=== PATIENT | female | born 2005 | race Caucasian/White ===

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

== ENCOUNTER 2025-02-11 08:36 | Inpatient (IN) | payer MEDICAID, SELFPAY ==
--- NOTE | ~2025-02-11 | CT_ITS ---
EXAMINATION: CT ABDOMEN PELVIS WITH IV CONTRAST HISTORY: diffuse abd pain COMPARISON: There are no prior studies for available comparison. TECHNIQUE: CT scan of the abdomen and pelvis was performed following administration of 85 mL Omnipaque 350 using standard departmental protocol. Coronal and sagittal reformatted images were generated and reviewed. Oral contrast material was not administered at the request of the referring physician. This CT exam was performed with one or more of the following dose reduction techniques: automated exposure control, adjustment of the mA and/or kV according to patient size, use of iterative reconstruction technique. DLP: 646 mGy-cm FINDINGS: LOWER CHEST: The visualized lung bases are clear. There is no pleural effusion. CARDIOVASCULATURE: The heart is normal in size. There is no pericardial effusion. LIVER: The liver is normal in size and contour. No liver mass is identified. The hepatic and portal veins are patent. GALLBLADDER / BILE DUCTS: The gallbladder is unremarkable. There is no intra or extrahepatic biliary ductal dilatation. SPLEEN: The spleen is normal in size. No focal splenic lesion is identified. PANCREAS: The pancreas is unremarkable in appearance. ADRENAL GLANDS: Within normal limits. KIDNEYS/RETROPERITONEUM: No renal calculi are identified. There is no hydronephrosis. No renal masses are identified. LYMPH NODES: No abdominal or pelvic lymphadenopathy. VASCULATURE: The abdominal aorta is normal in caliber. MESENTERY/PERITONEUM: There is trace free fluid in the cul-de-sac. No masses. There is no free intraperitoneal gas. STOMACH: The stomach is unremarkable. SMALL BOWEL: The small bowel is normal in caliber. COLON: The colon is unremarkable. APPENDIX: The appendix is dilated measuring up to 8mm in diameter. No periappendiceal inflammatory stranding is identified. URINARY BLADDER/PELVIC ORGANS: The urinary bladder is unremarkable. The uterus and ovaries are unremarkable. 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 CT/CT abdomen pelvis w IV con IMPRESSION: Prominent appendix without periappendiceal inflammatory stranding. Clinical correlation is recommended to evaluate for early appendicitis. Electronically signed by: Nathan Maradiaga MD 02/11/2025 11:11 AM EDT
[2025-02-11 09:01] VITALS: BP 114/70; PULSE 88; RESP 18; TEMP 36.1; O2SAT 99; BMI 29.5
--- NOTE | 2025-02-11 09:02 | ED.GENADULT ---
HPI - General Adult General Chief complaint: Abdominal Pain Stated complaint: abd pain Time Seen by Provider: 02/11/25 08:45 Source: patient, RN notes reviewed, old records reviewed and ammunition officer Mode of arrival: ambulatory Limitations: language barrier (Tunisian-speaking) History of Present Illness ED Provider: ZAHIDA Henry HPI narrative: 19-year-old female without significant medical history presents to the ED due to abdominal pain that began this morning. Patient reports the abdominal pain woke her up from sleep and is constant. She also explains she is having difficulty urinating. She states she experienced pain like this before when she had a miscarriage. Patient states she has the depo shot and her menstrual cycle is very irregular, she does not remember when her last menstruation was. Denies chest pain, SOB, nausea, vomiting MD complaint: abd pain Related Data Allergies Allergy/AdvReac Type Severity Reaction Status Date / Time No Known Allergies Allergy Verified 02/11/25 09:01 Review of Systems Review of Systems: CONST: Negative for fever, body aches and chills. HENT: Negative for neck pain/stiffness, headache, congestion, sore throat, swelling. EYES: Negative for discharge/pain or vision changes. RESP: Negative for cough/hemoptysis and shortness of breath. CV: Negative chest pain, difficulty breathing, palpitations. ABD: Negative nausea, vomiting. POS diffuse abd pain : Negative increase frequency, dysuria, blood in urine or stool. MUSC: Negative for muscle aches, edema. SKIN: Negative rash, lesions/sores. NEURO: Negative headache, dizziness, weakness. Yes all other systems are reviewed and are negative PMFSH Past Medical History Surgical History (Updated 02/11/25 @ 12:37 by Gloria Cespedes PA-C) History of Social History Social History Advance Directives: No Advance Directives Information Provided: Yes Physical Exam ED Vital Signs: Vital Signs - 24 hr 02/11/25 09:01 Temperature 97 F Pulse Rate 88 Respiratory Rate 18 Blood Pressure 114/70 Pulse Oximetry 99 Oxygen Delivery Method Room Air BMI result Body Mass Index 29.5 Medications Administered Discontinued Medications Generic Name Dose Route Start Last Admin Trade Name Freq PRN Reason Stop Dose Admin Lactated Ringer's 1,000 mls @ 999 mls/hr 09/18/25 09:12 02/11/25 09:30 Lr IV 02/11/25 10:12 999 mls/hr .Q1H1M ONE Administration Iohexol 100 ml 02/11/25 10:43 02/11/25 10:43 Iohexol 350 Mg/Ml 100 Ml Infus..Btl IV 02/11/25 10:44 85 ml ONCE ONE Administration Morphine Sulfate 4 mg 02/11/25 10:03 02/11/25 10:07 Morphine Sulfate 4 Mg/Ml Cartridge IVPUSH 02/11/25 10:04 4 mg ONCE ONE Administration Protocol Medical Decision Making Medical Decision Making [facility] Narrative: 19-year-old female without significant medical history with constant abdominal pain that started this morning and woke her from sleep, is not associated with nausea or vomiting. Patient reports difficulty with urination, is concerned for as she states the last time she experienced symptoms like this she had a miscarriage. Patient states she has the Depo shot, with irregular cycle does not know when her last menstrual period was. VS on initial observation-BP 114/70, pulse rate of 88, respiratory rate of 18, afebrile with oral temp of 97?, O2 saturation 99% on room air. On physical exam lungs clear to auscultation bilaterally, cardiac exam reveals normal rate and rhythm without murmurs/rubs/gallops, abdomen is soft, nonrigid, nondistended, when attempting to press on abdomen patient is guarding, and moves my hand very quickly and will not allow me to palpate. Patient points to the periumbilical region that is the cause of her pain. Plan: Labs, UA, CT abdomen and pelvis Course Labs without leukocytosis/leukopenia, H&H stable, no electrolyte abnormality. Beta hCG negative. CT abdomen and pelvis reveals index without periappendiceal inflammatory stranding. I have reached out to surgeon Dr. Knox who will admit the patient to his service. Patient is in agreement with the plan. Differential Diagnosis Differential Diagnoses: The differential diagnosis associated with the presentation includes Ectopic Viral illness Acute abdomen Admission/Observation Consideration of admission/observation: Escalation of care including admission/observation considered Lab Data [facility] Lab Attestation statement: I reviewed the patient's lab results. 02/11/25 09:07 02/11/25 09:07 Labs: Lab Results 02/11/25 02/11/25 Range/Units 09:07 11:32 WBC 8.4 (4.8-10.8) X10*3/uL RBC 4.72 (4.20-5.50) X10*6/uL Hgb 13.4 (12.0-16.0) g/dl Hct 39.4 (37.0-47.0) % MCV 83.5 (80.0-98.0) fL MCH 28.4 (27.0-33.0) pg MCHC 34.0 (31.0-35.0) g/dl RDW 13.1 (11.0-16.0) % Plt Count 284 (160-400) X10*3/uL MPV 9.8 (9.4-12.3) fL Immature Gran % (Auto) 0.4 (0.0-0.4) % Neut % (Auto) 58.1 (45-73) % Lymph % (Auto) 37.0 (20-40) % [place] % (Auto) 2.5 (2-11) % Eos % (Auto) 1.6 (0-4) % Baso % (Auto) 0.4 (0-2) % Lymph # (Auto) 3.1 (1.2-4.9) X10*3/uL [place] # (Auto) 0.2 (0.1-1.2) X10*3/uL Eos # (Auto) 0.1 (0.0-0.4) X10*3/uL Baso # (Auto) 0.0 (0.0-0.2) X10*3/uL Abs Immat Gran (auto) 0.03 (0.00-0.03) X10*3/uL Absolute Neuts (auto) 4.9 (2.0-8.3) x10*3/uL Absolute Nucleated RBC 0.000 (0.0-0.012) X10*3/uL Nucleated RBC % (auto) 0.0 (0.0-0.2) /100WBC Sodium 141 (135-145) mmol/L Potassium 3.6 (3.3-5.1) mmol/L Chloride 111 H (96-108) mmol/L Carbon Dioxide 24 (22-29) mmol/L Anion Gap 10 L (12-20) BUN 10 (9-16) mg/dL Creatinine 0.80 (0.5-1.4) mg/dL Estim Creat Clear Calc 113.3 Estimated GFR > 60 Random Glucose 124 H (60-115) mg/dL Calcium 8.8 (8.4-10.2) mg/dL Magnesium 1.7 (1.6-2.6) mg/dL Total Bilirubin 0.2 (0.0-1.0) mg/dL Direct Bilirubin < 0.2 (0.0-0.5) mg/dL AST 18 (5-31) U/L ALT 9 (0-31) U/L Alkaline Phosphatase 71 (39-117) U/L Total Protein 7.3 (6.5-8.0) g/dL Albumin 4.3 (3.5-5.0) g/dL Lipase 15 (8-78) U/L Beta HCG, Quant < 2 mIU/mL Urine Color Yellow Urine Appearance Clear Urine pH 6.0 (5.0-9.0) Ur Specific [place] 1.025 (1.005-1.025) Urine Protein Negative (Neg-Trace) mg/dL Urine Glucose (UA) Negative (Negative) mg/dL Urine Ketones Negative (Negative) mg/dL Urine Blood Negative (Negative) Urine Nitrite Negative (Negative) Ur Leukocyte Esterase Negative (Negative) Independent Interpretation I performed an independent interpretation of an: CT Scan Interpretation: I personally interpreted the CT abdomen and pelvis which reveals a thickened prominent appendix, I agree with the radiologist's interpretation. Radiology Impression Discussion of test interpretation with radiology: I have reviewed the radiologist's reading. Radiologist Impression: CT abdomen/pelvis FINDINGS: LOWER CHEST: The visualized lung bases are clear. There is no pleural effusion. CARDIOVASCULATURE: The heart is normal in size. There is no pericardial effusion. LIVER: The liver is normal in size and contour. No liver mass is identified. The hepatic and portal veins are patent. GALLBLADDER / BILE DUCTS: The gallbladder is unremarkable. There is no intra or extrahepatic biliary ductal dilatation. SPLEEN: The spleen is normal in size. No focal splenic lesion is identified. PANCREAS: The pancreas is unremarkable in appearance. ADRENAL GLANDS: Within normal limits. KIDNEYS/RETROPERITONEUM: No renal calculi are identified. There is no hydronephrosis. No renal masses are identified. LYMPH NODES: No abdominal or pelvic lymphadenopathy. VASCULATURE: The abdominal aorta is normal in caliber. MESENTERY/PERITONEUM: There is trace free fluid in the cul-de-sac. No masses. There is no free intraperitoneal gas. STOMACH: The stomach is unremarkable. SMALL BOWEL: The small bowel is normal in caliber. COLON: The colon is unremarkable. APPENDIX: The appendix is dilated measuring up to 8mm in diameter. No periappendiceal inflammatory stranding is identified. URINARY BLADDER/PELVIC ORGANS: The urinary bladder is unremarkable. The uterus and ovaries are unremarkable. 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 CT/CT abdomen pelvis w IV con IMPRESSION: Prominent appendix without periappendiceal inflammatory stranding. Clinical correlation is recommended to evaluate for early appendicitis. Electronically signed by: Nathan Maradiaga MD 02/11/2025 11:11 AM EDT Dictated By: Nathan Maradiaga MD Signed By: <Electronically signed by Nathan Maradiaga MD in OV> Independent Historian Clinical information obtained from an independent historian. History obtained from or confirmed by: Friend (Friend at bedside corroborating history) External Record Review External record reviewed: Inpatient record, Office record and Outpatient record Prescription Management I considered prescription management with: Antibiotic (I considered antibiotics however CT without evidence of ruptured appy, no indication for antibiotics at this time.) Chronic Conditions Patient?s care impacted by: Other (No known medical history) Discharge Plan Discharge Clinical Impression: Acute appendicitis Patient Disposition: Admitted As Inpatient
[2025-02-11 09:11] LABS: MANUAL DIFF FLAG NO
[2025-02-11 09:18] LABS: Hematocrit 39.4 % (37.0-47.0); Hemoglobin 13.4 g/dl (12.0-16.0); Imm Gran Abs Auto 0.03 X10*3/uL (0.00-0.03); Imm Gran Pct Auto 0.4 % (0.0-0.4); Lymphocytes Absolute Auto 3.1 X10*3/uL (1.2-4.9); Mean Corpuscular HGB Conc 34.0 g/dl (31.0-35.0); Mean Corpuscular Hemoglobin 28.4 pg (27.0-33.0); Mean Corpuscular Volume 83.5 fL (80.0-98.0); NRBC Abs Auto 0.000 X10*3/uL (0.0-0.012); NRBC Pct Auto 0.0 /100WBC (0.0-0.2); Platelet Count 284 X10*3/uL (160-400); Red Blood Count 4.72 X10*6/uL (4.20-5.50); White Blood Count 8.4 X10*3/uL (4.8-10.8)
--- NOTE | 2025-02-11 09:19 | PC.NURSE ---
patient reports abdominal pain that woke her up from sleep, since has been having difficulty w/ urination. IV established, labs obtained and sent.
[2025-02-11] MEDS: Lactated Ringers 1,000 ML 999 ML IV (09:30)
[2025-02-11 09:40] LABS: Alanine Aminotransferase 9 U/L (0-31); Albumin Level 4.3 g/dL (3.5-5.0); Alkaline Phosphatase 71 U/L (39-117); Anion Gap 10 (12-20); Aspartate Amino Transferase 18 U/L (5-31); Blood Urea Nitrogen 10 mg/dL (9-16); Calcium 8.8 mg/dL (8.4-10.2); Carbon Dioxide 24 mmol/L (22-29); Chloride 111 mmol/L (96-108); Creatinine Clr Calc Pharmacy 113.3; Estimated Glomerular Filt Rate > 60; Lipase 15 U/L (8-78); Magnesium 1.7 mg/dL (1.6-2.6); Potassium 3.6 mmol/L (3.3-5.1); Sodium 141 mmol/L (135-145); Total Protein 7.3 g/dL (6.5-8.0)
[2025-02-11] MEDS: iohexoL 350 MG/ML 100 ML INFUS..BTL IV (10:43)
[2025-02-11 11:44] LABS: Appearance Urine Clear; Glucose Urine UA Negative (Negative); PH 6.0 (5.0-9.0); Specific Gravity - Urine 1.025 (1.005-1.025)
--- NOTE | 2025-02-11 12:31 | P.HPGS_ITS ---
History of Present Illness History of Present Illness Date of Service: 02/11/25 <Gloria Cespedes PA-C - Last Filed: 02/11/25 12:45> 02/11/25 <Jere Knox MD - Last Filed: 02/11/25 15:10> Chief complaint: abd pain <Gloria Cespedes PA-C - Last Filed: 02/11/25 12:45> Narrative: Cherise Caldwell is a 19 year old female with no significant PMH who was in her usual state of health when she was awoken out of sleep this morning around 8am with abdominal pain. She reports the pain is surrounding/above her umbilicus on the right. This is where the pain started and persisted. It was associated with one episode of loose stools. She denies nausea, vomiting, fevers, constipation, dysuria. It was severe in nature and she therefore came to the ED for evaluation. Work up in the ED included CBC, BMP, LFTs which were essentially unremarkable. CT scan was performed which showed a dilated appendix without periappendiceal inflammatory stranding. She denies previous episodes of similar pain. She feels improved since presenting to the ED. She is hungry and wants to eat and is asking for food. Surgical history significant for c section. <Gloria Cespedes PA-C - Last Filed: 02/11/25 12:45> Review of Systems Review of Systems: Yes all other systems are reviewed and are negative <Gloria Cespedes PA-C - Last Filed: 02/11/25 12:45> [facility] Surgical History Surgical History: Surgical History (Updated 02/11/25 @ 12:37 by Gloria Cespedes PA-C) History of <Gloria Cespedes PA-C - Last Filed: 02/11/25 12:45> Social History Social History: Social History Advance Directives: No Advance Directives Information Provided: Yes <Gloria Cespedes PA-C - Last Filed: 02/11/25 12:45> Meds Allergies/Adverse reactions: Allergies Allergy/AdvReac Type Severity Reaction Status Date / Time No Known Allergies Allergy Verified 02/11/25 09:01 <Gloria ZAHIDA Cespedes Rosanna Last Filed: 02/11/25 12:45> Physical Exam Vital Signs: Vital Signs: Last Vital Signs Temp 97 F 02/11/25 09:01 Pulse 88 02/11/25 09:01 Resp 18 02/11/25 09:01 BP 114/70 02/11/25 09:01 Pulse Ox 99 02/11/25 09:01 O2 Del Method Room Air 02/11/25 09:01 BMI result Body Mass Index 29.5 <Gloria Cespedes PA-C Rosanna Last Filed: 02/11/25 12:45> Const: General: comfortable, no acute distress and alert; No ill appearing <Gloria Cespedes PA-C Rosanna Last Filed: 02/11/25 12:45> Orientation/consciousness: patient oriented x3 <Gloria Cespedes PA-C Rosanna Last Filed: 02/11/25 12:45> Resp: Effort & Inspection: normal respiratory effort <Gloria Cespedes PA-C Rosanna Last Filed: 02/11/25 12:45> Cardio: Rate: regular rate <Gloria CHAMP CespedesEddie Marte Last Filed: 02/11/25 12:45> GI: Other: mildly corpulent abdomen <Gloria Cespedes PA-C Rosanna Last Filed: 02/11/25 12:45> Inspection: No distended and Yes scar (well healed pfannensteil) <Gloria Cespedes PA-C Rosanna Last Filed: 02/11/25 12:45> Palpation (GI): Soft to palpation, Tenderness to palpation present (GI) (mild periumbilical tenderness, more on the right ) with no rebound tenderness and Rovsing's sign negative and no guarding <Gloria Cespedes PA-C Rosanna Last Filed: 02/11/25 12:45> Skin: General skin exam: no rashes or lesions noted <Gloria Cespedes PA-C Rosanna Last Filed: 02/11/25 12:45> Neuro: General: patient oriented x3 and moves all extremities <Gloria Cespedes PA-C Rosanna Last Filed: 02/11/25 12:45> Results Results Labs: Short CBC 02/11/25 Range/Units 09:07 WBC 8.4 (4.8-10.8) X10*3/uL Hgb 13.4 (12.0-16.0) g/dl Hct 39.4 (37.0-47.0) % Plt Count 284 (160-400) X10*3/uL BMP 02/11/25 09:07 Sodium 141 Potassium 3.6 Chloride 111 H Carbon Dioxide 24 BUN 10 Creatinine 0.80 Calcium 8.8 Liver Function 02/11/25 Range/Units 09:07 Total Bilirubin 0.2 (0.0-1.0) mg/dL Direct Bilirubin < 0.2 (0.0-0.5) mg/dL AST 18 (5-31) U/L ALT 9 (0-31) U/L Alkaline Phosphatase 71 (39-117) U/L Albumin 4.3 (3.5-5.0) g/dL Urine 02/11/25 Range/Units 11:32 Urine Color Yellow Urine Appearance Clear Urine pH 6.0 (5.0-9.0) Ur Specific [place] 1.025 (1.005-1.025) Urine Protein Negative (Neg-Trace) mg/dL Urine Glucose (UA) Negative (Negative) mg/dL <Gloria Cespedes PA-C - Last Filed: 02/11/25 12:45> Abdomen CT scan report/results: report reviewed and image reviewed <Gloria Cespedes PA-C - Last Filed: 02/11/25 12:45> Additional studies: labs reviewed <Gloria Cespedes PA-C - Last Filed: 02/11/25 12:45> Assessment and Plan (1) Abdominal pain: Status: Acute <Gloria Cespedes PA-C - Last Filed: 02/11/25 12:45> [age] year old female with periumbilical pain since 08:00 this morning No nausea or vomiting Abdomen is soft and benign Tender directly on the area around the umbilicus No leukocytosis CT scan reviewed - the appendix prominent but without inflammatory changes Can not rule out acute appendicitis so we will admit the patient for serial abdominal exam IV Zosyn Explained plan to patient and family at bedside Seen and examined independently <Jere Knox MD - Last Filed: 02/11/25 15:10> 19 year old female with no significant PMH presenting with acute onset periumbilical abdominal pain. Her CT scan shows a mildly enlarged appendix however there are no surrounding inflammatory changes and she has no leukocytosis. She is comfortable and nontoxic appearing, she does have tenderness periumbilically but no tenderness in the RLQ/suprapubic region. Will therefore admit for observation, start on empiric IV abx for possible early acute appendicitis. If she has no improvement in her pain tomorrow, we discussed possible proceeding with laparoscopic appendectomy possible open. Will cont IVF, NPO status, IV abx. Further plan dependent on clinical course. Patient and family at bedside agree with plan. Seen with japanese interpreter. <Gloria Cespedes PA-C - Last Filed: 02/11/25 12:45> Quality Stroke Does the patient have a stroke diagnosis?: No <Gloria Cespedes PA-C - Last Filed: 02/11/25 12:45> VTE Prior VTE?: No <Gloria Cespedes PA-C - Last Filed: 02/11/25 12:45> VTE Risk Level:: Medical - low <Gloria Cespedes PA-C - Last Filed: 02/11/25 12:45> VTE Device Contraindication: N/A - Device Ordered <Gloria Cespedes PA-C - Last Filed: 02/11/25 12:45> VTE Drug Contraindication: Treatment Not Indicated <Gloria Cespedes PA-C - Last Filed: 02/11/25 12:45> Procedures Date of Service Date of Service: 02/11/25 <Gloria Cespedes PA-C - Last Filed: 02/11/25 12:45> 02/11/25 <Jere Knox MD - Last Filed: 02/11/25 15:10>
[2025-02-11] MEDS: Lactated Ringers 1,000 ML 100 ML IVCONT (13:33)
--- NOTE | 2025-02-11 13:44 | HO.NURTONUR ---
Pt arrived c/o abd pain starting this morning. ED CT shows early appendicitis, pt started on IVF, IV abx, and consult to surgery. Currently denies n/v/d/dizziness/FEVERS. Ambulatory/independent, aaox4. Plan for possible lap appy tomorrow if symptoms don't improve. Pt is SSO.
[2025-02-11 15:04] VITALS: BP 115/53; PULSE 79; RESP 14; TEMP 37.6; O2SAT 99
--- NOTE | 2025-02-11 16:43 | PM.EVENT ---
Event Note Date of Service: 02/12/25 Event Note: Seen on afternoon rounds She says she has more comfortable She has less pain Hemodynamically stable Abdomen remained soft and very benign She does have some tenderness around the umbilicus although this seems to be less Continue management for now with close monitoring, IV antibiotics, IV fluids and serial exams We will re-evaluate in the morning she is comfortable with the plan Time Spent With Patient Time: Total time managing care of this patient today ____ minutes.
[2025-02-11] MEDS: 0.9 % Sodium Chloride Flush 3 ML SYRINGE IVFLUSH (17:00)
[2025-02-11] MEDS: oxyCODONE HCl Immed Release 5 MG TABLET PO (17:04)
--- NOTE | 2025-02-11 19:25 | PHA.MEDREC ---
Pharmacy Consult ? Medication Reconciliation Pharmacy has completed the medication reconciliation. Spoke to patient via offset press assistant and she confirmed she does not take any medication at home.
[2025-02-11 19:27] VITALS: BP 126/69; PULSE 88; RESP 18; TEMP 36.2; O2SAT 100
[2025-02-12] MEDS: Lactated Ringers 1,000 ML 100 ML IVCONT (02:35)
[2025-02-12 03:48] VITALS: BP 107/54; PULSE 73; RESP 16; TEMP 36.3; O2SAT 99
[2025-02-12 05:27] LABS: MANUAL DIFF FLAG NO
[2025-02-12 05:31] LABS: Hematocrit 34.3 % (37.0-47.0); Hemoglobin 11.9 g/dl (12.0-16.0); Imm Gran Abs Auto 0.01 X10*3/uL (0.00-0.03); Imm Gran Pct Auto 0.1 % (0.0-0.4); Lymphocytes Absolute Auto 2.7 X10*3/uL (1.2-4.9); Mean Corpuscular HGB Conc 34.7 g/dl (31.0-35.0); Mean Corpuscular Hemoglobin 28.8 pg (27.0-33.0); Mean Corpuscular Volume 83.1 fL (80.0-98.0); NRBC Abs Auto 0.000 X10*3/uL (0.0-0.012); NRBC Pct Auto 0.0 /100WBC (0.0-0.2); Platelet Count 251 X10*3/uL (160-400); Red Blood Count 4.13 X10*6/uL (4.20-5.50); White Blood Count 8.3 X10*3/uL (4.8-10.8)
[2025-02-12] MEDS: oxyCODONE HCl Immed Release 5 MG TABLET PO ×2 (07:05→13:01)
[2025-02-12 07:39] VITALS: BP 99/53; PULSE 69; RESP 16; TEMP 36.7; O2SAT 98
--- NOTE | 2025-02-12 08:42 | P.PNGS_ITS ---
Subjective Subjective Date of Service: 02/12/25 <Gloria Cespedes PA-C - Last Filed: 02/12/25 08:45> 02/12/25 <Jere Knox MD - Last Filed: 02/12/25 09:56> Interval history: Feels improved, pain remains periumbilical but significant better. Feels hungry and wants to eat. <Gloria Cespedes PA-C - Last Filed: 02/12/25 08:45> Physical Exam 2 Vital Signs: Vital Signs: Last Vital Signs Temp 98.0 F 02/12/25 07:39 Pulse 69 02/12/25 07:39 Resp 16 02/12/25 07:39 BP 99/53 L 02/12/25 07:39 Pulse Ox 98 02/12/25 07:39 O2 Del Method Room Air 02/12/25 07:39 BMI result Body Mass Index 29.5 <Gloria Cespedes PA-C - Last Filed: 02/12/25 08:45> Const: General: comfortable, no acute distress and alert <Gloria Cespedes PA-C - Last Filed: 02/12/25 08:45> Orientation/consciousness: patient oriented x3 <Gloria Cespedes PA-C - Last Filed: 02/12/25 08:45> Resp: Effort & Inspection: normal respiratory effort <Gloria Cespedes PA-C - Last Filed: 02/12/25 08:45> GI: Inspection: No distended <Gloria Cespedes PA-C - Last Filed: 02/12/25 08:45> Palpation (GI): Soft to palpation, Tenderness to palpation present (GI) (mild periumbilical on right ) and no guarding <Gloria Cespedes PA-C - Last Filed: 02/12/25 08:45> Skin: General skin exam: no rashes or lesions noted <ZAHIDA Hall Last Filed: 02/12/25 08:45> Neuro: General: patient oriented x3 and moves all extremities <ZAHIDA Hall Last Filed: 02/12/25 08:45> Objective Data Active Medications Acetaminophen (Acetaminophen 325 Mg Tablet) 650 mg PO Q6H PRN PRN Reason: Pain, Mild 1-3,fever,headache Calcium Carbonate (Calcium Carbonate 750 Mg Tab.Chew) 750 mg PO Q4H PRN PRN Reason: Heartburn Lactated Ringer's (Lr) 1,000 mls @ 100 mls/hr IVCONT .Q10H [facility] Last Admin: 02/12/25 07:52 Dose: Not Given Documented By: NIVIA Non-Admin Reason: IV Running Piperacillin Sod/Tazobactam (Sod 3.375 gm/ Sodium Chloride) 50 mls @ 100 mls/hr IV Q6H [facility] Last Infusion: 02/12/25 07:02 Dose: Infused Documented By: NIVIA Magnesium Hydroxide (Milk Of Magnesia 30 Ml Oral.Susp) 30 ml PO DAILY PRN PRN Reason: Constipation Melatonin (Melatonin 3 Mg Tablet) 6 mg PO BEDTIME PRN PRN Reason: Insomnia Morphine Sulfate (Morphine Sulfate 4 Mg/Ml Cartridge) 4 mg IVPUSH Q4H PRN; Protocol PRN Reason: Pain, Severe (Pain Scale 7-10) Ondansetron HCl (Ondansetron Hcl 4 Mg/2 Ml Vial) 4 mg IVPUSH Q8H PRN PRN Reason: Nausea and Vomiting Oxycodone HCl (Oxycodone Hcl Immed Release 5 Mg Tablet) 5 mg PO Q6H PRN PRN Reason: Pain, Moderate(Pain Scale 4-6) Last Admin: 02/12/25 07:05 Dose: 5 mg Documented By: NIVIA Sodium Chloride (0.9 % Sodium Chloride Flush 3 Ml Syringe) [facility] Last Admin: 02/12/25 07:45 Dose: Not Given Documented By: NIVIA Non-Admin Reason: IV Running <Gloria Cespedes PA-C - Last Filed: 02/12/25 08:45> Labs CBC & Chem 7: 02/12/25 05:10 02/11/25 09:07 <Gloria Cespedes PA-C - Last Filed: 02/12/25 08:45> Labs: Laboratory Results - last 24 hr 02/11/25 02/11/25 02/12/25 09:07 11:32 05:10 MCV 83.5 83.1 MCH 28.4 28.8 MCHC 34.0 34.7 RDW 13.1 13.1 Plt Count 284 251 MPV 9.8 9.7 Immature Gran % (Auto) 0.4 0.1 Neut % (Auto) 58.1 56.8 Lymph % (Auto) 37.0 31.8 Todd % (Auto) 2.5 8.9 Eos % (Auto) 1.6 2.2 Baso % (Auto) 0.4 0.2 Lymph # (Auto) 3.1 2.7 Todd # (Auto) 0.2 0.7 Eos # (Auto) 0.1 0.2 Baso # (Auto) 0.0 0.0 Abs Immat Gran (auto) 0.03 0.01 Absolute Neuts (auto) 4.9 4.7 Absolute Nucleated RBC 0.000 0.000 Nucleated RBC % (auto) 0.0 0.0 Anion Gap 10 L Estim Creat Clear Calc 113.3 Estimated GFR > 60 Random Glucose 124 H Calcium 8.8 Magnesium 1.7 Total Bilirubin 0.2 Direct Bilirubin < 0.2 AST 18 ALT 9 Alkaline Phosphatase 71 Total Protein 7.3 Albumin 4.3 Lipase 15 Beta HCG, Quant < 2 Urine Color Yellow Urine Appearance Clear Urine pH 6.0 Ur Specific [place] 1.025 Urine Protein Negative Urine Glucose (UA) Negative Urine Ketones Negative Urine Blood Negative Urine Nitrite Negative Ur Leukocyte Esterase Negative <Gloria Cespedes PA-C - Last Filed: 02/12/25 08:45> Procedures Date of Service Date of Service: 02/12/25 <Gloria Cespedes PA-C - Last Filed: 02/12/25 08:45> 02/12/25 <Jere Knox MD - Last Filed: 02/12/25 09:56> Progress Note: A&P Assessment and plan (1) Acute appendicitis: Status: Acute <Gloria Cespedes PA-C - Last Filed: 02/12/25 08:45> Assessment and Plan: Feels well this morning Much less tender Pain minimal Abdomen is soft and very benign Looks well No nausea or vomiting WBC still normal Diet as tolerated and possibly DC home this afternoon I do not feel she needs antibiotics on discharge Seen and examined independently <Jere Knox MD - Last Filed: 02/12/25 09:56> Assessment and Plan: Admitted with question of acute appendicitis. WBC remains normal, abd exam remains benign, less tender, no peritoneal signs. Clinically appearing well. Will advance to solid diet. If tolerating, stable for dc to home today. Patient comfortable with plan. <Gloria Cespedes PA-C - Last Filed: 02/12/25 08:45> Time Spent With Patient Time: Total time managing care of this patient today ____ minutes. <Gloria Cespedes PA-C - Last Filed: 02/12/25 08:45> Quality Stroke Does the patient have a stroke diagnosis?: No <ZAHIDA Hall Last Filed: 02/12/25 08:45> VTE Prior VTE?: No <Gloria Cespedes PA-C - Last Filed: 02/12/25 08:45> VTE Risk Level:: Medical - low <Gloria Cespedes PA-C - Last Filed: 02/12/25 08:45> VTE Device Contraindication: N/A - Device Ordered <ZAHIDA Hall Last Filed: 02/12/25 08:45> VTE Drug Contraindication: Treatment Not Indicated <ZAHIDA Hall Last Filed: 02/12/25 08:45>
[2025-02-12 13:13] VITALS: BP 126/63; PULSE 73; RESP 16; TEMP 36.1
--- NOTE | 2025-02-12 14:47 | P.DS_ITS ---
DS: Providers Provider Date of Service: 02/12/25 Date of admission: 02/11/25 12:42 Date of discharge: 02/12/25 Primary care physician: None Physician Attending physician on admission: Jere Knox Attending physician on discharge: Jere Knox DS: Diagnosis Discharge Diagnosis (1) Acute appendicitis: Status: Acute DS: Summary Hospital Course Hospital Course: HPI AT ADMISSION: Cherise Caldwell is a 19 year old female with no significant PMH who was in her usual state of health when she was awoken out of sleep this morning around 8am with abdominal pain. She reports the pain is leonard rounding/above her umbilicus on the right. This is where the pain started and persisted. It was associated with one episode of loose stools. She denies nausea, vomiting, fevers, constipation, dysuria. It was severe in nature and she therefore came to the ED for evaluation. Work up in the ED included CBC, BMP, LFTs which were essentially unremarkable. CT scan was performed which showed a dilated appendix without periappendiceal inflammatory stranding. She denies previous episodes of similar pain. She feels improved since presenting to the ED. She is hungry and wants to eat and is asking for food. Surgical history significant for c section. HOSPITAL COURSE: It was felt to be low clinically likelihood for acute appendicitis given she had no surrounding inflammatory changes and no leukocy tosis however in view of her pain, she was admitted to the surgical service for observation as acute appendicitis could not be ruled out. She is comfortable and nontoxic appearing She was started on empiric IV abx, cont IVF, NPO status. The following day she remained hemodynamically stable. Her WBC remained normal. She had improvement in her abd pain and she was significantly less tender on exa m. She was advanced to a solid diet. She was reassessed and was tolerating a solid diet without nausea, vomiting, worsening abd pain. She felt ready for discharge. She was discharged to home on 02/12/25 in stable condition. She was not discharged on antibiotics. Worrisome symptoms for return were discussed with her including worsening severe abd pain, persistent nausea/vomiting, fevers. Status at Discharge Functional status at discharge: independent ambulation Overall status at discharge: patient is progressing back to baseline Time Attestation Discharge Coordination Time (in mins): 25 Quality: Safe Use of Opioids Does Pt have an Active Cancer Diagnosis on the Problem List?: No Quality: Stroke Does the patient have a stroke diagnosis?: No Physical Exam Vital Signs: Vital Signs: Last Vital Signs Temp 97.0 F 02/12/25 13:13 Pulse 73 02/12/25 13:13 Resp 16 02/12/25 13:13 BP 126/63 02/12/25 13:13 Pulse Ox 98 02/12/25 07:39 O2 Del Method Room Air 02/12/25 07:39 BMI result Body Mass Index 29.5 Const: General: comfortable, no acute distress and alert Resp: Effort & Inspection: normal respiratory effort GI: Inspection: Yes normal to inspection and No distended Palpation (GI): Soft to palpation, Tenderness to palpation present (GI) (mild periumbilical, improved ) and no guarding Skin: General skin exam: no rashes or lesions noted Discharge Plan Discharge Anticipated Discharge Date/Time: 02/12/25 12:53 Patient Disposition: Home, Self-Care Discharge Diagnosis: abdominal pain Referrals: Physician,None [Primary Care Provider, Medical] - 1 Week Discharge Medications: No Action No Known Home Meds Discharge Orders: Discharge Order (Routine); Ordered 02/12/25 Ordered By: Gloria Cespedes Diet: Advance to usual diet Activity on Discharge: As tolerated Stand Alone Forms: Patient Portal Discharge page, Work/School Release Print Language: [place] Citizen Activity Restrictions/Additional Instructions: Follow up with your PCP. Call Your Doctor Or Return To ED If: ? ? -Your temperature exceeds 101.5? F? ? ? -You experience severe abdominal pain ? ? -You have an unexpected reaction to medication ? ? -You experience continued vomiting/nausea and are unable to tolerate oral intake. Care Plan Goals: Return to baseline health and resume normal activities. Health Concerns: abdominal pain, periumbilical Plan of Treatment: Observation Follow up with PCP Return to ED or call PCP if worsening abd pain, persistent nausea/vomiting, fevers Assessment: Improved Patient Instructions: Appendicitis (GEN) Discharge Date/Time: 02/12/25 13:13
--- NOTE | 2025-02-12 16:14 | MHC.CM.PN ---
PT LIVES WITH FAMILY AND IS INDEPENDENT WITH CARE DECLINES HCP NO PCP DC HOME TODAY VIA FAMILY TRANSPORT
== END 2025-02-12 13:13 | disposition home or self-care (01) | DRG 254 ==
LOC: HO.ED 12:29 → HO.EDOVER 12:43 → HO.S3 13:08
PROVIDERS: Admitting Provider Physician Assistant Surgical; Emergency Provider Emergency Medicine; Visit Provider Physician Assistant Surgical
DX: K35.80 Unspecified acute appendicitis (principal)
CPT/HCPCS: 36415; 74177; 80048; 80076; 81003; 83690; 83735; 84702; 85025; 99285; J2270; J2543; J7120; Q9967

== ENCOUNTER → 2025-02-11 09:48 | Outpatient (BNV) | payer MEDICAID, SELFPAY | PROVIDERS: Emergency Provider Emergency Medicine; Visit Provider Radiology Diagnostic Radiology | DX: R10.84 Generalized abdominal pain (principal); K38.0 Hyperplasia of appendix | CPT/HCPCS: 74177 ==

== ENCOUNTER → 2025-02-11 12:42 | Outpatient (BNV) | payer MEDICAID, SELFPAY | PROVIDERS: Admitting Provider Physician Assistant Surgical; Emergency Provider Emergency Medicine; Visit Provider Physician Assistant Surgical | DX: R10.9 Unspecified abdominal pain (principal) | CPT/HCPCS: 99222; 99232; 99499 ==